=== PATIENT | male | born 1965 | race Caucasian/White ===

== ENCOUNTER 2021-03-09 02:47 | Outpatient (CLI) | payer BC, SELFPAY ==
--- NOTE | 2021-03-09 | DI.CT_ITS ---
Exam(s) CT LOWER EXTREMITY RT W EXAM: CT LOWER EXTREMITY RT W CLINICAL HISTORY: 1 YR HX FOOT PAIN, RADIOGRAPHIC EVIDENCE STRESS FX VS INFECTION 4 MET.. TECHNIQUE: Imaging Protocol: Axial computed tomography images with coronal and sagittal reformatted images were created and reviewed. COMPARISON: No exams were available for comparison FINDINGS: Bones: The osseous structures and articular surfaces are intact. There is periosteal reaction invol ving predominantly the dorsal and medial shaft of the 4th metatarsal bone. There does appear to be s ome disruption of the cortex along the medial aspect of the metatarsal diaphysis. Findings are most concerning for healing fracture. No lytic or sclerotic lesion is seen. The bone is normally mineral ized. Soft Tissues: No abscess is identified. No significant edema seen in the soft tissues. IMPRESSION: 1. Periosteal reaction involving the diaphysis of the 4th metatarsal bone. There does appear to be d isruption of the cortex along the medial aspect of the diaphysis. The findings are suspicious for he aling fracture. 2. No soft tissue abscess. 3. If there is continued clinical concern an MRI without and with contrast may be obtained. RADIATION DOSE DELIVERED: 178.61mGy.cm Total DLP 178.61mGy.cm Total DLP DATA REPOSITORY: All CT scans at this facility are submitted to the National Radiology Data Registry (NRDR) Dose Index Registry (DIR) with the [employer] ([employer]). RADIATION OPTIMIZATION: All CT scans at this facility use at least one of these dose optimization te chniques: automated exposure control; mA and/or kV adjustment per patient size (includes targeted exa ms where dose is matched to clinical indication); or iterative reconstruction.
[2021-03-09 14:04] LABS: BUN 15 mg/dL (7-18); CREATININE 1.1 mg/dL (0.70-1.30)
[2021-03-09] MEDS: Omnipaque 350 MG/ML 100 ML BTL IJ (15:00)
== END 2021-03-09 03:07 ==
PROVIDERS: PCP Family Medicine; Visit Provider Podiatrist
DX: M79.671 Pain in right foot (principal); M85.871 Other specified disorders of bone density and structure, right ankle and foot; Z01.812 Encounter for preprocedural laboratory examination
CPT/HCPCS: 84520; 73701; 82565; J3490

== ENCOUNTER → 2022-10-22 10:33 | Outpatient (CLI) | payer BC, SELFPAY ==
--- NOTE | 2022-10-22 10:50 | DI.RAD_ITS ---
Exam(s) XR KNEE LT 3V AP,LAT,JABARI EXAM: XR KNEE LT 3V AP,LAT,JABARI h CLINICAL HISTORY: KNEE PAIN LEFT. TECHNIQUE: 2D digital imaging was performed. COMPARISON: No exams were available for comparison FINDINGS: 3 views This prominent anterior soft tissue swelling. No evidence of patellar fracture nor radiopaque foreig n body. No knee joint effusion. Bone density normal. No degenerative changes. IMPRESSION: Anterior soft tissue swelling-prepatellar region. No acute osseous findings. DATA REPOSITORY: RADIATION DOSE DELIVERED:
--- NOTE | 2022-10-22 11:33 | DI.VRAD_ITS ---
PROCEDURE INFORMATION: Exam: XR Left Knee Exam date and time: 10/22/2022 11:11 AM Age: 57 years old Clinical indication: Other: Left knee pain, no known injury TECHNIQUE: Imaging protocol: Radiologic exam of the left knee. Views: 3 views. COMPARISON: No relevant prior studies available. FINDINGS: Bones/joints: There is no evidence of acute fracture.There is no evidence of malalignment or dislocation. Soft tissues: Normal. IMPRESSION: There is no evidence of acute fracture.There is no evidence of malalignment or dislocation. Dictated and Authenticated by: Wilfred Rivera MD. Ordering:ANDREW WATKINS MD
== END ==
PROVIDERS: PCP Family Medicine; Visit Provider Nurse Practitioner Family
DX: M25.562 Pain in left knee (principal)
CPT/HCPCS: 73562

== ENCOUNTER 2022-10-22 11:02 | Outpatient (REF) | payer BC, SELFPAY ==
[2022-10-22 16:33] LABS: ALT 32 U/L (16-63); AST 16 U/L (15-37); Albumin 3.9 g/dL (3.4-5.0); Alkaline Phosphatase 81 U/L (46-116); Anion Gap 10.7 mmol/L (3-11); BUN 15 mg/dL (7-18); Bilirubin, Total 0.4 mg/dL (0.2-1.0); CO2 24.3 mmol/L (21.0-32.0); Calcium 9.5 mg/dL (8.5-10.1); Chloride 104 mmol/L (98-107); Estimated GFR 87.24 (mL/min/1.73m2); Glucose 103 mg/dL (74-106); Potassium 4.5 mmol/L (3.5-5.1); Sodium 139 mmol/L (136-145); TSH (W/Ref FT4) 0.92 uIU/mL (0.36-3.74); Uric Acid 5.5 mg/dL (3.5-7.2)
[2022-10-24 09:40] LABS: Lyme Ab w Rflx to Lyme Confirm Negative (Negative)
== END 2022-10-22 11:03 | disposition home or self-care (01) ==
LOC: LBN 11:02
PROVIDERS: PCP Family Medicine; Visit Provider Nurse Practitioner Family
DX: M25.562 Pain in left knee (principal); W57.XXXA Bitten or stung by nonvenomous insect and other nonvenomous arthropods, initial encounter; I10 Essential (primary) hypertension
CPT/HCPCS: 80053; 84443; 84550; 86618

== ENCOUNTER 2023-02-15 16:18 | Outpatient (REF) | payer BC, SELFPAY ==
[2023-02-15 16:39] LABS: HGB 16.3 g/dL (13.5-17.5); MCH 30.1 pg (27.0-33.0); MCHC 33.3 % (32.0-36.0); MCV 91 fL (80-95); MPV 9.7 fL (8.0-11.0); Platelet Count 280 10^3/uL (130-400); RBC 5.41 10^6/uL (4.36-5.78); RDW 13.9 % (11.8-14.1); RDW-SD 46.5 fL; WBC 9.68 10^3/uL (4.4-10.8)
[2023-02-15 16:54] LABS: ALT 33 U/L (16-63); AST 15 U/L (15-37); Albumin 3.9 g/dL (3.4-5.0); Alkaline Phosphatase 68 U/L (46-116); Anion Gap 9.6 mmol/L (3-11); BUN 18 mg/dL (7-18); Bilirubin, Total 0.4 mg/dL (0.2-1.0); CO2 23.4 mmol/L (21.0-32.0); Calcium 9.2 mg/dL (8.5-10.1); Calculated LDL 144 mg/dL (<100); Chloride 105 mmol/L (98-107); Cholesterol 225 mg/dL (<200); Estimated GFR 87.24 (mL/min/1.73m2); Glucose 101 mg/dL (74-106); HDL Cholesterol 64 mg/dL (40-60); Potassium 4.4 mmol/L (3.5-5.1); Sodium 138 mmol/L (136-145); Triglyceride 85 mg/dL (<150)
== END 2023-02-15 16:19 | disposition home or self-care (01) ==
LOC: NCHCN 16:18
PROVIDERS: PCP Family Medicine; Visit Provider Family Medicine
DX: I10 Essential (primary) hypertension (principal)
CPT/HCPCS: 80053; 80061; 85027

== ENCOUNTER 2024-02-13 12:21 | Outpatient (REF) | payer BC, SELFPAY ==
[2024-02-13 15:11] LABS: HCT 48.9 % (40.0-50.0); HGB 16.2 g/dL (13.5-17.5); MCH 30.3 pg (27.0-33.0); MCHC 33.1 % (32.0-36.0); MCV 92 fL (80-95); MPV 9.5 fL (8.0-11.0); Platelet Count 275 10^3/uL (130-400); RBC 5.34 10^6/uL (4.36-5.78); RDW 13.8 % (11.8-14.1); RDW-SD 47.1 fL; WBC 10.88 10^3/uL (4.4-10.8)
[2024-02-13 15:40] LABS: ALT 30 U/L (16-63); AST 37 U/L (15-37); Alkaline Phosphatase 76 U/L (46-116); Anion Gap 11.8 mmol/L (3-11); BUN 15 mg/dL (7-18); Bilirubin, Total 0.75 mg/dL (0.2-1.0); CO2 21.2 mmol/L (21.0-32.0); CREATININE 0.9 mg/dL (0.70-1.30); Calcium 9.2 mg/dL (8.5-10.1); Calculated LDL 132 mg/dL (<100); Chloride 105 mmol/L (98-107); Cholesterol 221 mg/dL (<200); Estimated GFR 98.38 (mL/min/1.73m2); Glucose 91 mg/dL (74-106); HDL Cholesterol 63 mg/dL (40-60); Potassium 5.3 mmol/L (3.5-5.1); Sodium 138 mmol/L (136-145); Total Protein 7.4 g/dL (6.4-8.2); Triglyceride 132 mg/dL (<150)
== END 2024-02-13 12:22 | disposition home or self-care (01) ==
LOC: NCHCN 12:21
PROVIDERS: PCP Family Medicine; Visit Provider Family Medicine
DX: Z00.00 Encounter for general adult medical examination without abnormal findings (principal)
CPT/HCPCS: 80053; 80061; 85027

== ENCOUNTER 2024-10-28 10:24 | Outpatient (REF) | payer OTHER, SELFPAY ==
[2024-10-28 14:50] LABS: Abs Immature Grans 0.04 10^3/uL (0.0-0.06); HCT 48.2 % (40.0-50.0); HGB 15.9 g/dL (13.5-17.5); Immature Grans % 0.4 %; MCH 29.8 pg (27.0-33.0); MCHC 33.0 % (32.0-36.0); MCV 90 fL (80-95); MPV 9.6 fL (8.0-11.0); Platelet Count 288 10^3/uL (130-400); RBC 5.33 10^6/uL (4.36-5.78); RDW 13.7 % (11.8-14.1); RDW-SD 45.9 fL; WBC 10.96 10^3/uL (4.4-10.8)
[2024-10-28 15:16] LABS: ALT 41 U/L (16-63); AST 16 U/L (15-37); Albumin 4.0 g/dL (3.4-5.0); Alkaline Phosphatase 82 U/L (46-116); Anion Gap 13.0 mmol/L (3-11); BUN 16 mg/dL (7-18); Bilirubin, Total 0.4 mg/dL (0.2-1.0); CO2 22.0 mmol/L (21.0-32.0); Calcium 9.3 mg/dL (8.5-10.1); Calculated LDL 132 mg/dL (<100); Chloride 104 mmol/L (98-107); Cholesterol 215 mg/dL (<200); Estimated GFR 97.78 (mL/min/1.73m2); Glucose 96 mg/dL (74-106); HDL Cholesterol 54 mg/dL (>or=40); Potassium 4.3 mmol/L (3.5-5.1); Sodium 139 mmol/L (136-145); Total Protein 7.1 g/dL (6.4-8.2); Triglyceride 149 mg/dL (<150)
[2024-10-28 22:59] LABS: PSA, Diagnostic 1.4 ng/mL (<=4.5)
== END 2024-10-28 10:25 | disposition home or self-care (01) ==
LOC: NCHCN 10:24
PROVIDERS: PCP Family Medicine; Visit Provider Family Medicine
DX: N40.1 Benign prostatic hyperplasia with lower urinary tract symptoms (principal); I10 Essential (primary) hypertension; E78.5 Hyperlipidemia, unspecified
CPT/HCPCS: 80053; 80061; 84153; 85025